=== PATIENT | male | born 1965 | race Native Hawaiian/Other Pacific Islander ===

== ENCOUNTER 2022-03-01 09:16 | Outpatient (CLI) | payer BC, SELFPAY ==
[2022-03-01 13:38] LABS: Cholesterol* 233 mg/dL (90-199); Triglycerides* 391 mg/dL (40-149)
[2022-03-01 13:39] LABS: HDL Cholesterol* 35 mg/dL (>=40); LDL Cholesterol Calculated 120 mg/dL (<100)
[2022-03-03 02:23] LABS: C-Peptide, Serum or Plasma 1.9 ng/mL (0.5-3.3)
== END 2022-03-01 09:17 | disposition home or self-care (01) ==
PROVIDERS: PCP Family Medicine; Visit Provider Family Medicine
DX: E13.9 Other specified diabetes mellitus without complications (principal); E78.5 Hyperlipidemia, unspecified
CPT/HCPCS: 80061; 84681

== ENCOUNTER 2022-11-28 10:17 | Outpatient (CLI) | payer BC, SELFPAY | END 2022-11-28 10:18 | disposition home or self-care (01) | PROVIDERS: PCP Family Medicine; Visit Provider Family Medicine | DX: E13.9 Other specified diabetes mellitus without complications (principal); E78.5 Hyperlipidemia, unspecified; M10.9 Gout, unspecified; R63.5 Abnormal weight gain; Z12.5 Encounter for screening for malignant neoplasm of prostate; Z13.29 Encounter for screening for other suspected endocrine disorder | CPT/HCPCS: 80048; 80061; 84153; 84443; 84681 ==

== ENCOUNTER 2023-06-26 14:33 | Outpatient (CLI) | payer BC, SELFPAY | END 2023-06-26 14:34 | disposition home or self-care (01) | LOC: LKVREF 14:35 | PROVIDERS: PCP Family Medicine; Visit Provider Family Medicine | DX: E13.9 Other specified diabetes mellitus without complications (principal) | CPT/HCPCS: 80048 ==

== ENCOUNTER 2023-12-13 09:35 | Outpatient (CLI) | payer BC, SELFPAY | END 2023-12-13 09:36 | disposition home or self-care (01) | PROVIDERS: PCP Family Medicine; Visit Provider Family Medicine | DX: E78.5 Hyperlipidemia, unspecified (principal) | CPT/HCPCS: 80061 ==

== ENCOUNTER 2024-04-30 10:04 | Outpatient (CLI) | payer BC, SELFPAY | END 2024-04-30 10:05 | disposition home or self-care (01) | PROVIDERS: PCP Family Medicine; Visit Provider Family Medicine | DX: M10.9 Gout, unspecified (principal); E11.9 Type 2 diabetes mellitus without complications; Z79.4 Long term (current) use of insulin | CPT/HCPCS: 80048; 84550 ==

== ENCOUNTER 2024-07-24 14:50 | Outpatient (CLI) | payer BC, SELFPAY | END 2024-07-24 14:51 | disposition home or self-care (01) | LOC: LKVREF 14:52 | PROVIDERS: PCP Family Medicine; Visit Provider Physician Assistant | DX: H54.61 Unqualified visual loss, right eye, normal vision left eye (principal) | CPT/HCPCS: 86140 ==

== ENCOUNTER 2024-08-15 07:12 | Outpatient (CLI) | payer BC, SELFPAY ==
--- NOTE | 2024-08-15 07:15 | CRLHL7_ITS ---
For Patients: As a result of the Cures Act, medical imaging exams and procedure reports are released immediately into your electronic medical record. You may view this report before your referring provider. If you have questions, please contact your health care provider. CLINICAL HISTORY: RIGHT OPTIC NERVE ISCHEMIA TECHNIQUE: The carotid circulations and the vertebral arteries in the neck were examined with shane-scale ultrasound, color-flow and Doppler spectral analysis. Degrees of stenosis were determined using SRU 2002 Consensus Panel Criteria. FINDINGS: Sonographic images demonstrate mild bilateral atherosclerotic plaque formation without suspicious soft tissue mass. There was antegrade blood flow demonstrated within the vertebral arteries and the subclavian arteries demonstrated a normal triphasic waveform. The spectral Doppler tracings of the common carotid, internal and external carotid arteries demonstrate no abnormal turbulence or spectral broadening. There was no significant elevation of peak systolic blood flow which would indicate a hemodynamically-significant stenosis by SRU criteria. The ICA/CCA peak systolic velocity ratio measures 1.1 on the right and 1.0 on the left. IMPRESSION: Less than 50 percent stenosis of the internal carotid arteries bilaterally. Dictated by Lobo Mai MD @ 08/15/2024 10:38:22 AM (Electronically Signed)
--- NOTE | 2024-08-15 08:15 | CRLHL7_ITS ---
For Patients: As a result of the Century Cures Act, medical imaging exams and procedure reports are released immediately into your electronic medical record. You may view this report before your referring provider. If you have questions, please contact your health care provider. INDICATION: Vision changes. TECHNIQUE: Multisequence multiplanar MRI of the brain prior to and following administration of 15 cc Dotarem gadolinium-based intravenous contrast. COMPARISON: None available. FINDINGS: No evidence of acute ischemia. Normal signal intensity of the brain parenchyma. No focus of enhancement. The ventricles are normal in size. Flow voids of the larger intracranial arteries are preserved. Bone marrow signal intensity of the calvarium is within normal limits. The globes are symmetric. There is mild scattered paranasal sinus mucosal thickening. IMPRESSION: Unremarkable contrast-enhanced MRI of the brain. Dictated by Isac Mir MD @ 08/15/2024 3:17:54 PM (Electronically Signed)
--- NOTE | 2024-08-15 08:30 | CRLHL7_ITS ---
For Patients: As a result of the Century Cures Act, medical imaging exams and procedure reports are released immediately into your electronic medical record. You may view this report before your referring provider. If you have questions, please contact your health care provider. Indication: Vision changes. Technique: Multisequence multiplanar MRI of the orbits prior to and following administration of 15 cc Dotarem gadolinium based intravenous contrast. Comparison: None available. Findings: Motion degraded exam. Symmetric globes with normal anterior situation of the lenses. No intraconal mass or focus of abnormal enhancement. The optic nerves are normal in signal intensity. The optic chiasm and pituitary infundibulum appear within normal limits. The extraocular muscles are unremarkable in appearance. Impression: Unremarkable contrast-enhanced MRI of the orbits. Dictated by Isac Mir MD @ 08/15/2024 3:19:50 PM (Electronically Signed)
== END 2024-08-15 07:13 | disposition home or self-care (01) ==
PROVIDERS: PCP Family Medicine; Visit Provider Family Medicine
DX: H53.40 Unspecified visual field defects (principal); H47.019 Ischemic optic neuropathy, unspecified eye; I65.23 Occlusion and stenosis of bilateral carotid arteries
CPT/HCPCS: 70543; 70553; 93880; A9575

== ENCOUNTER 2024-11-22 09:23 | Outpatient (CLI) | payer BC, SELFPAY | END 2024-11-22 09:24 | disposition home or self-care (01) | PROVIDERS: PCP Family Medicine; Visit Provider Family Medicine | DX: E11.9 Type 2 diabetes mellitus without complications (principal); E78.2 Mixed hyperlipidemia; Z12.5 Encounter for screening for malignant neoplasm of prostate; Z79.4 Long term (current) use of insulin | CPT/HCPCS: 80053; 80061; G0103 ==